=== PATIENT | male | born 1950 | race Caucasian/White ===

== ENCOUNTER → 2016-04-08 | Outpatient (CLI) | payer BC, OTHER ==
[~2016-04-08] MED LIST: ACET-1256 PO; ALLO100T PO; ASPI81TA28 PO; ATOR-24 PO; CRS20 PO; IBUP-1050 PO; NRN400 PO; OXYC-57 PO; ramipril PO
== END | disposition home or self-care (01) ==
LOC: C.RDSM 12:44
PROVIDERS: ATTEND Physical Medicine & Rehabilitation Sports Medicine
DX: M25.511 Pain in right shoulder (principal)

== ENCOUNTER → 2016-04-15 | Outpatient (CLI) | payer BC ==
--- NOTE | 2016-04-15 12:33 | DIAGNOSTIC IMAGING REPORT ---
MRI right shoulder RIGHT UPPER EXT JOINT WITHOUT CLINICAL HISTORY: RT SHOULDER PAIN Right pain TECHNIQUE: Multiaxial MRI acquisition COMPARISON STUDY: None FINDINGS: Signal characteristics the osseous structures are unremarkable. There is no evidence for bone marrow replacing process. Small focal osteophyte projecting in the inferior fashion from the lateral margin of the acromion. This measures 4 x 5 mm. It creates moderate focal impact upon the supraspinatus musculotendinous juncture. The may be a small superficial tear at the superior margin supraspinatus. No evidence for full-thickness rotator cuff tear. Infraspinatus and subscapularis tendons are unremarkable. Biceps tendon is intact within the bicipital groove. Glenoid labrum is unremarkable. IMPRESSION: 1. Focal osteophyte projecting from the inferior aspect of the acromion measuring 5 x 4 mm. 2. This creates focal impingement upon the musculotendinous junction of the supraspinatus, with evidence for a superficial partial thickness tear at its superior margin. 3. Remainder the study is negative with no evidence for full-thickness rotator cuff tear. Electronically signed by: Dick Nava M.D. 04/15/2016 12:31 PM Dictated Date/Time: 04/15/2016 12:24 PM
== END | disposition home or self-care (01) ==
LOC: C.MRI 11:24
PROVIDERS: ATTEND Physical Medicine & Rehabilitation Sports Medicine
DX: M25.711 Osteophyte, right shoulder (principal); M75.101 Unspecified rotator cuff tear or rupture of right shoulder, not specified as traumatic

== ENCOUNTER → 2016-06-17 | Outpatient (CLI) | payer BC | END | disposition home or self-care (01) | LOC: C.RDSM 14:01 | PROVIDERS: ATTEND Physical Medicine & Rehabilitation Sports Medicine | DX: M25.552 Pain in left hip (principal) ==

== ENCOUNTER → 2016-07-09 | Outpatient (CLI) | payer BC | END | disposition home or self-care (01) | LOC: C.RDSM 08:00 | PROVIDERS: ATTEND Physical Medicine & Rehabilitation Sports Medicine | DX: M79.651 Pain in right thigh (principal) ==

== ENCOUNTER → 2016-07-16 | Outpatient (CLI) | payer BC ==
--- NOTE | 2016-07-16 07:45 | DIAGNOSTIC IMAGING REPORT ---
LUMBAR SPINE MRI HISTORY: Back pain. Right neuropathy. M79.651. TECHNIQUE: Multiplanar multisequence MRI of the lumbar spine was performed without the use of contrast. COMPARISON: None. FINDINGS: For the purpose of the report the L5-S1 disc space will be located on axial image 23 of 25. Moderate degenerative disc changes throughout. Multilevel narrowing of the spinal canal. L1-L2: Mild multifactorial narrowing of the spinal canal. Minimal narrowing of the right neural foramina L2-L3: Mild multifactorial narrowing of the spinal canal. Neuroforamina are patent bilaterally. L3-L4: Rather significant multifactorial narrowing of the spinal canal. Mild broad-based disc herniation. Moderate narrowing of the right and to lesser extent left neural foramina. L4-L5: Mild/moderate multifactorial narrowing of spinal canal. Significant narrowing of the right and to lesser extent left neuroforamina. L5-S1: Mild broad-based bulging disc. Minimal impact upon the anterior thecal sac. IMPRESSION: 1. Moderate to significant multilevel narrowing of spinal canal. 2. This is most significant at L3-L4 and L4-L5 3. Significant narrowing of the right and to lesser extent left neural foramina at L4-L5. 4. Moderate narrowing of the right and to lesser extent left neural foramina L3-L4. Electronically signed by: Dick Nava M.D. 07/16/2016 7:43 AM Dictated Date/Time: 07/16/2016 7:36 AM
== END | disposition home or self-care (01) ==
LOC: C.MRI 06:42
PROVIDERS: ATTEND Physical Medicine & Rehabilitation Sports Medicine
DX: M79.661 Pain in right lower leg (principal); M48.06 Spinal stenosis, lumbar region

== ENCOUNTER → 2016-08-23 | Outpatient (CLI) | payer BC, OTHER | END | disposition home or self-care (01) | LOC: C.RDSM 08:57 | PROVIDERS: ATTEND Physical Medicine & Rehabilitation Sports Medicine | DX: M79.652 Pain in left thigh (principal); M25.562 Pain in left knee ==

== ENCOUNTER → 2016-10-03 | Outpatient (CLI) | payer BC, OTHER ==
[~2016-10-03] MED LIST changes: -CRS20 PO; -ramipril PO
--- NOTE | 2016-10-03 15:15 | DIAGNOSTIC IMAGING REPORT ---
LEFT LOWER EXT JOINT WITHOUT CLINICAL HISTORY: 66 years-old Male with acute left knee pain without reported trauma. COMPARISON: Left knee radiographs 08/23/2016 TECHNIQUE: Multiplanar, multisequence MRI of the left knee was performed without intravenous contrast. FINDINGS: MENISCI: There is a complex tear of the posterior horn medial meniscus extending into the posterior junction. The majority of this tear is horizontal undersurface component nicely seen on sagittal images 4 through 7. The tear also extends into the pre--- is mildly blunted. There is no associated large displaced fragment or para meniscal cysts identified. The anterior horn of the medial meniscus appears intact. There is minimal intrameniscal degeneration of the lateral meniscus without discrete tear. CRUCIATE LIGAMENTS: The anterior and posterior cruciate ligaments are normal in signal, morphology and course. COLLATERAL LIGAMENTS: The popliteus tendon, biceps femoris tendon, fibular collateral ligament and iliotibial band are intact. There is mild thickening with intermediate signal of the proximal fibers of the MCL suggesting grade 2 injury. EXTENSOR MECHANISM: The quadriceps and patellar tendons are intact. The medial and lateral patellar retinacula are intact. KNEE JOINT: There is a physiologic amount of fluid within the joint space. There is mild medial compartment joint space narrowing with areas of low-density in immediate grade chondromalacia. No large osteochondral defect. No significant degenerative changes are seen within the lateral compartment. Low-grade chondral fissuring present within the medial patellar facet. No intra-articular loose body is seen. BONE MARROW: The bone marrow signal is age appropriate. No fracture, marrow edema, or marrow replacing process. SOFT TISSUES: There is a mild amount of edema within the suprapatellar quadriceps fat suggesting possible impingement. There is an ossified body adjacent to the lateral aspect of the lateral tibial plateau just superior to the fibular head, 1.5 x 0.3 x 0.6 cm in AP, transverse and craniocaudal dimensions. Accessory ossicle or fragment osteophyte are differential considerations. Mild nonspecific edema seen within the posterior intercondylar notch. There is a trace Underwood's cyst. IMPRESSION: 1. 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 2. Complex tear of the posterior horn and posterior junction medial meniscus with dominant horizontal undersurface component extending into the free edge. 3. Mild amount of edema within the quadriceps fat pad suggests impingement. 4. Grade 2 injury of the MCL. 5. Trace Underwood's cyst. The above report was generated using voice recognition software. It may contain grammatical, syntax or spelling errors. Electronically signed by: Florencio Castañeda M.D. 10/03/2016 3:13 PM Dictated Date/Time: 10/03/2016 3:01 PM
== END | disposition home or self-care (01) ==
LOC: C.MRI 13:55
PROVIDERS: ATTEND Physical Medicine & Rehabilitation Sports Medicine
DX: M25.562 Pain in left knee (principal); S83.232A Complex tear of medial meniscus, current injury, left knee, initial encounter; S83.412A Sprain of medial collateral ligament of left knee, initial encounter; X58.XXXA Exposure to other specified factors, initial encounter

== ENCOUNTER → 2016-10-16 | Day surgery (SDC) | payer BC, OTHER ==
[2016-09-23 15:17] VITALS: Ht 198.1 cm; Wt 97.7 kg
[~2016-10-16] VITALS: Ht 198.1 cm; Wt 97.7 kg
[~2016-10-16] MED LIST changes: +IOPAMIDOL INJ 61% 15 ML VIAL ONE; +LIDOCAINE HCL 1% MPF 5 ML VIAL ONE; +SODIUM CHLORIDE 0.9% INJ 10 ML VIAL ONE
--- NOTE | 2016-10-16 13:01 | History & Physical Bridge - SC ---
H&P Re-Evaluation Bridge Note: I have examined the patient, reviewed the History & Physical and in the interval since the performance of the History & Physical I have noted the following changes of clinical significance: No changes noted
[2016-10-16 13:28] VITALS: TEMP 36.7
--- NOTE | 2016-10-16 13:34 | Discharge Instructions ---
Discharge Instructions Date of Service Oct 16, 2016. Visit Reason for Visit: Lumbar Spinal Stenosis Discharge Discharge Diagnosis / Problem: left leg pain Discharge Goals Goal(s): Decrease discomfort, Improve function Medications Stopped Medications Name(s): ASAANJU Activity Recommendations Activity Limitations: resume your previous activity Anesthesia . Post Anesthesia Instructions: If you have had General Anesthesia or IV Sedation: * Do not drive today. * Resume driving when surgeon permits. * Do not make important decisions or sign legal documents today. * Call surgeon for: 1. Temperature elevations greater than 101 degrees F. 2. Uncontrollable pain. 3. Excessive bleeding. 4. Persistent nausea and vomiting. 5. Medication intolerance (nausea, vomiting or rash). * For nausea and vomiting use only clear liquids such as: tea, soda, bouillon until nausea subsides, then gradually increase diet as tolerated. * If you have any concerns or questions, call your surgeon's office. If physician is unavailable and it is an emergency, call 911 or go to the nearest emergency room. . Diet Recommendations Recommended Home Diet: resume previous diet Procedures Procedures Performed: Lumbar Epidural Steroid Injection Pending Studies Studies pending at discharge: no Medical Emergencies . Who to Call and When: Medical Emergencies: If at any time you feel your situation is an emergency, please call 911 immediately. . Non-Emergent Contact Non-Emergency issues call your: Specialist . . "Provider Documentation" section prepared by Everardo Barnes. .
[2016-10-16 13:40] VITALS: BP 151/80; PULSE 51; O2SAT 100
--- NOTE | 2016-10-16 13:44 | OPERATIVE REPORT ---
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 POSTOPERATIVE DIAGNOSIS: Same. PROCEDURE: Left paramedian L4-L5 intralaminar epidural steroid injection under fluoroscopic guidance. SURGEON: Dr. Everardo Barnes. INDICATIONS: The patient is a 66-year-old white male who has not responded to conservative treatment for his radicular pain, has been going on now approaching more than 7 months. He presents today for an epidural injection to provide him with relief of his left L4 radiculopathy that radiates down into the thigh on the medial aspect of his knee. PHYSICAL EXAMINATION: GENERAL: Pleasant male seated comfortably in no apparent distress. MUSCULOSKELETAL: Lumbar paraspinal muscles were palpated and noted be nontender. He had normal motor and sensory examination of his lower extremities. Negative seated straight leg raises. CONSENT: Verbal and written consent was obtained from the patient. Risks and benefits were reviewed. Risks include but are not limited to epidural abscess, epidural hematoma, allergic reaction, dural puncture. The patient wishes to proceed. PROCEDURE: The patient was taken back to the special procedures room of the [facility] where he was maintained in a prone position. Backside was cleansed with Betadine x3 and a dry sterile dressing was applied. Fluoroscope was used to identify the L4-L5 interlaminar space and overlying skin was anesthetized with 4 mL of lidocaine 1% with a 25 gauge 1.5-inch needle. A 22-gauge 3-1/2 inch Tuohy needle was then placed under fluoroscopic guidance and advanced to a depth of 7 cm. Loss of resistance was noted at this depth. He then underwent injection after negative aspiration of 1 mL of Isovue 300 contrast which demonstrated epidural uptake pattern. He then underwent injection after negative aspiration of 40 mg of Depo-Medrol and 4 mL of preservative free sodium chloride. Injection was well tolerated. DISPOSITION: 1. The patient is taken out into the discharge recovery area where he will be discharged home once discharge criteria have been met. 2. Follow up in the [facility] office in 2-4 weeks. I attest to the content of the Intraoperative Record and any orders documented therein. Any exception s are noted below.
== END | disposition home or self-care (01) ==
LOC: X.SURG 12:08
PROVIDERS: ATTEND Physical Medicine & Rehabilitation
DX: M51.16 Intervertebral disc disorders with radiculopathy, lumbar region (principal); M48.06 Spinal stenosis, lumbar region; Z79.82 Long term (current) use of aspirin

== ENCOUNTER → 2017-02-27 | Outpatient (CLI) | payer BC ==
[~2017-02-27] VITALS: Ht 198.1 cm; Wt 102.4 kg
[~2017-02-27] MED LIST changes: -IOPAMIDOL INJ 61% 15 ML VIAL ONE; -LIDOCAINE HCL 1% MPF 5 ML VIAL ONE; -SODIUM CHLORIDE 0.9% INJ 10 ML VIAL ONE
[2017-02-27 11:55] VITALS: BP 138/74; PULSE 56; Ht 198.1 cm; Wt 102.4 kg
== END | disposition home or self-care (01) ==
LOC: C.NEUR 11:15
PROVIDERS: ATTEND Internal Medicine Pulmonary Disease
DX: G47.33 Obstructive sleep apnea (adult) (pediatric) (principal)

== ENCOUNTER → 2017-04-24 | Day surgery (SDC) | payer BC, OTHER ==
[2017-04-01 11:48] VITALS: Ht 198.1 cm; Wt 96.4 kg
[~2017-04-24] VITALS: Ht 198.1 cm; Wt 96.4 kg
== END | disposition home or self-care (01) ==
LOC: EDSTATUS 13:00 → C.PAT 15:18
PROVIDERS: ATTEND Physical Medicine & Rehabilitation
DX: M54.16 Radiculopathy, lumbar region (principal); Z53.9 Procedure and treatment not carried out, unspecified reason

== ENCOUNTER 2024-02-12 02:15 | Observation (INO) ==
[2024-02-12] MEDS: ONDANSETRON INJ 2 MG/ML 2 ML VIAL IV STA (02:36)
[2024-02-12] MEDS: SODIUM CHLORIDE 0.9% 500 ML IV ONE (02:36)
[2024-02-12] MEDS: fentaNYL citrate PF 100 MCG/2 ML VIAL IV STA (02:37)
--- NOTE | 2024-02-12 02:55 | Emergency Department Note ---
Impression & Plan Calculus of left ureter, Hydronephrosis of left kidney, Acute left flank pain, Intractable pain ED Provider Note HISTORY OF PRESENT ILLNESS: Patient is a 73-year-old male presenting with left flank pain. Patient reports that he was recently seen in the emergency department 7 days ago and diagnosed with a kidney stone. He states that he was having pain throughout the last week and has had intermittent episodes of blood in his urine. He states that he has been straining his urine and has not passed the stone yet. He states that he was sleeping when he awoke acutely at 1:30 AM with pain in his left flank. He took 600 mg of ibuprofen and 5 mg of the prescribed oxycodone with little relief in his symptoms. He describes the pain as sharp and constant. He denies any fevers. He denies any chest pain or shortness of breath. Denies any anterior abdominal pain. Locates the pain to the left CVA region with radiation into his left lateral flank. Denies any pain into his testicles. Abdominal surgical history significant for a right sided hernia repair and an appendectomy. ROS: as above PHYSICAL EXAM: Constitutional: Patient appears in no acute distress. HENT: Head: Normocephalic and atraumatic. Eyes: EOMI, PERRL Mouth/Throat: Mucous membranes moist. Neck: Trachea midline. Neck supple. Cardiovascular: RRR, No murmurs, rubs or gallops. Intact distal pulses. Pulmonary/Chest: No respiratory distress. Breath sounds clear and equal bilaterally. No wheezes or rales. Abdominal: Abdomen soft, no tenderness, rebound or guarding. Back: No midline spinal tenderness, no paraspinal tenderness. Left CVA tenderness to palpation. No rashes noted. Musculoskeletal: No edema, tenderness or deformity noted. Skin: Warm and dry. No rash, erythema, pallor or cyanosis Psychiatric: Appropriate mood and affect for situation. Neurological: Alert and keenly responsive. CN II-XII grossly intact, moving all extremities equally and fully. MDM: - Vitals signs showed hypertension and bradycardia. - History obtained via patient. History as above. - Chronic conditions affecting care: anxiety; BPH; HLD - Differential diagnoses include, but are not limited to: ureteral stone; hydronephrosis; UTI; pyelonephritis; diverticulitis; colitis - Order placed for continuous cardiac monitoring. At this time, monitor showed rate of 57 bpm with normal sinus rhythm, per my interpretation. - External medical records reviewed. CT imaging obtained on 02/05/2024 was reviewed. Patient had a 4 mm ureteral stone that was located in the proximal ureter at the time. - IV access obtained. Patient was given 500 cc normal saline, 4 mg IV Zofran and 50 mcg IV fentanyl for symptomatic management. He did desaturate to 88% on room air and was placed on 2 L of supplemental oxygen. - Laboratory workup interpreted by myself showed normal WBC; stable electrolytes; normal creatinine; normal lipase - On reassessment, patient reports the pain is coming back and he rates it an 8 out of 10. He was given a gram of IV Tylenol with little relief in his symptoms and then given 15 mg of IV Toradol. However, on reassessment he is stating that his pain is a 10 out of 10. He was given 2 mg of IV morphine. - CT abdomen/pelvis with IV contrast persistent left 4 mm mid-ureteral stone with left-sided hydronephrosis - On reassessment, patient's pain only minimally improved. Discussed results with the patient. He was agreeable to admission, given his persistent symptoms and failed outpatient management. - Discussion was had with binder caser about patient's case and need for admission - Hospitalist consulted for admission - Patient admitted to [facility] for further evaluation and management. ASSESSMENT AND PLAN: Diagnosis: left ureteral stone; left hydronephrosis; acute left flank pain; intractable pain Plan: admit Past Med/Surg History Problem List (Updated 02/12/24 @ 04:48 by Fide Braden MD) Intractable pain (Acute) Acute left flank pain (Acute) Hydronephrosis of left kidney (Acute) Calculus of left ureter (Acute) Abdominal fluid collection (Acute) Kidney stones (Acute) Kidney stone on left side Colon cancer screening Biceps tendon rupture, proximal Encounter for pre-operative examination History of surgery RT BICEPS REPAIR/PT DENIES SURGERY FOR Tremor Neuropathy Radicular pain in right arm Gait abnormality Ulnar neuropathy at elbow of right upper extremity Glucose intolerance Sleep apnea Medical History Anxiety BPH (benign prostatic hyperplasia) Cardiac murmur History of colon polyps History of gout Hyperlipidemia Kidney stone on left side Myocardial Infarction Nasal congestion Neuropathy Osteoarthritis Sleep apnea Tremor Surgical History Fusion of toes of right foot History of appendectomy History of colonoscopy History of esophagogastroduodenoscopy (EGD) History of hammertoe correction History of herniorrhaphy History of surgery on upper extremity History of tooth extraction S/P epidural steroid injection Family History Sister Family history of diabetes mellitus Other Family history of prostate cancer No family history of adverse response to anesthesia Social History Smoking Status: Never smoker Second Hand Exposure: No; Do You Dip or Chew Tobacco: No; Hx Alcohol Use: No Hx Substance Use: No Preferred Language: Citizen Of [place] Communication Ability: Effective Post Doctoral Researcher Required: No Beliefs That Will Affect Care: None Current Living Situation: Spouse Feels Safe at Home: Yes Assistive Devices: Glasses Allergies Allergies Allergy/AdvReac Type Severity Reaction Status Date / Time chlorhexidine Allergy Severe RASH Verified 02/10/24 09:57 pregabalin [From Lyrica] Allergy Unknown Hives Verified 02/10/24 09:57 Home Meds Home Medications Medication Instructions Recorded Confirmed acetaminophen 500 mg tablet 1,000 mg PO Q6H PRN Pain ##0 09/23/16 02/10/24 (Tylenol Extra Strength) sertraline 100 mg tablet (Zoloft) 100 mg PO PM 09/01/20 02/10/24 multivitamin with minerals-folic 1 tab PO QPM 03/21/22 02/10/24 acid 0.4 mg tablet (Adult One Daily Multivitamin) allopurinol 300 mg tablet 300 mg PO DAILY 09/26/22 02/10/24 aspirin 81 mg tablet,delayed 81 mg PO DAILY 09/26/22 02/10/24 release rosuvastatin 40 mg tablet 40 mg PO DAILY 09/26/22 02/10/24 Previous Rx's Medication Instructions Recorded oxycodone-acetaminophen 5 mg-325 1 tab PO Q6H PRN pain #14 tabs 02/05/24 mg tablet (Percocet) Results & Data (ED) Vital Signs Vital Signs - 24 hr 02/12/24 02:16 02/12/24 02:19 02/12/24 02:42 Temperature 36.6 C 36.9 C Temperature Source Oral Temporal Artery Scan Pulse Rate 55 L 54 L Pulse Rate [Right Finger] 59 L Pulse Rhythm Regular Pulse Strength Normal Respiratory Rate 17 18 Respiratory Effort / Characteristics Non-Labored Spontaneous Respiratory Depth Normal Respiratory Pattern Regular Blood Pressure 162/81 H Blood Pressure [Left Arm] 145/67 H Blood Pressure Mean 108 Blood Pressure Mean [Left Arm] 93 Blood Pressure Position Sitting Blood Pressure Position [Left Arm] Pulse Oximetry 98 100 Oxygen Delivery Method Nasal Cannula Room Air Oxygen Flow Rate 2 Sepsis Recent Fever Within 48 Hours No Sepsis New/Unexplained Change in Mental Status N/A Sepsis Action Taken by Nursing No Action Required 02/12/24 02:49 02/12/24 02:50 02/12/24 03:42 Temperature Temperature Source Pulse Rate Pulse Rate [Right Finger] 64 Pulse Rhythm Pulse Strength Respiratory Rate 18 Respiratory Effort / Characteristics Non-Labored Respiratory Depth Normal Respiratory Pattern Blood Pressure Blood Pressure [Left Arm] 166/69 H Blood Pressure Mean Blood Pressure Mean [Left Arm] 101 Blood Pressure Position Blood Pressure Position [Left Arm] Sitting Pulse Oximetry 88 L 99 98 Oxygen Delivery Method Room Air Nasal Cannula Room Air Oxygen Flow Rate 2 Sepsis Recent Fever Within 48 Hours Sepsis New/Unexplained Change in Mental Status Sepsis Action Taken by Nursing 02/12/24 04:02 Temperature Temperature Source Pulse Rate Pulse Rate [Right Finger] 55 L Pulse Rhythm Pulse Strength Respiratory Rate 24 Respiratory Effort / Characteristics Respiratory Depth Respiratory Pattern Blood Pressure Blood Pressure [Left Arm] 164/79 H Blood Pressure Mean Blood Pressure Mean [Left Arm] 107 Blood Pressure Position Blood Pressure Position [Left Arm] Pulse Oximetry 100 Oxygen Delivery Method Room Air Oxygen Flow Rate Sepsis Recent Fever Within 48 Hours Sepsis New/Unexplained Change in Mental Status Sepsis Action Taken by Nursing Laboratory Data 02/12/24 02:36 02/12/24 02:36 Lab Results 02/12/24 02/12/24 Range/Units 02:36 02:52 WBC 7.50 (4.8-10.8) K/ul RBC 4.69 L (4.70-6.10) M/uL Hgb 14.9 (14.0-18.0) g/dl Hct 43.4 (42.0-52.0) % MCV 92.5 (80.0-100.0) fL MCH 31.8 (25.0-34.0) pg MCHC 34.3 (32.0-36.0) g/dL RDW Std Deviation 41.5 (36.4-46.3) fL RDW Coeff of Jennifer 12.2 (11.5-14.5) % Plt Count 234 (130-400) K/uL MPV 9.9 (9.4-12.4) fL Immature Gran % (Auto) 0.3 % Neut % (Auto) 64.5 % Lymph % (Auto) 21.2 % Keith % (Auto) 10.9 % Eos % (Auto) 2.7 % Baso % (Auto) 0.4 % Neut # (Auto) 4.84 (1.40-6.50) K/uL Lymph # (Auto) 1.59 (1.20-3.40) K/uL Keith # (Auto) 0.82 H (0.11-0.59) K/uL Eos # (Auto) 0.20 (0.00-0.50) K/uL Baso # (Auto) 0.03 (0.00-0.20) K/uL Immature Gran # (Auto) 0.02 (0.01-0.20) K/uL PT 10.2 (9.0-12.0) Seconds INR 0.9 (0.9-1.1) Sodium 144 (136-145) mmol/L Potassium 4.2 (3.5-5.1) mmol/L Chloride 108 H (98-107) mmol/L Carbon Dioxide 28 (21-32) mmol/L Anion Gap 8 (3-11) BUN 22 (6-23) mg/dl Creatinine 0.97 (0.6-1.4) mg/dl Est Cr Clr Drug Dosing 96.4 ml/min eGFR 82.94 BUN/Creatinine Ratio 22.7 H (10-20) Glucose 124 H (70-99(Fasting)) mg/dl Lactate 1.5 (0.4-2.0) mmol/L Calcium 9.6 (8.6-10.3) mg/dl Total Bilirubin 1.0 (0.2-1.0) mg/dl AST 20 (13-39) U/L ALT 18 (7-52) U/L Alkaline Phosphatase 54 (34-104) U/L Total Protein 7.1 (6.0-8.3) gm/dl Albumin 3.9 (3.4-5.0) gm/dl Globulin 3.2 (2.5-4.0) gm/dl Albumin/Globulin Ratio 1.2 (0.9-2) Lipase 26 (11-82) U/L Urine Color Dark Yellow Urine Appearance Clear (Clear) Urine pH 6.0 (4.5-7.5) Ur Specific [place] 1.027 (1.000-1.030) Urine Protein Trace H (Negative) Urine Glucose (UA) Negative (Negative) Urine Ketones Trace H (Negative) Urine Blood 2+ H (Negative) Urine Nitrite Negative (Negative) Urine Bilirubin Negative (Negative) Urine Urobilinogen Negative (Negative) Ur Leukocyte Esterase Trace H (Negative) Urine WBC (Auto) 0-5 (0-5) /hpf Urine RBC (Auto) >20 H (0-2) /hpf U Hyaline Cast (Auto) 3-5 H (0-2) /lpf U Epithel Cells (Auto) 0-2 (0-2) /hpf Urine Bacteria (Auto) None Seen (None Seen) Administered Medications Discontinued Medications Fentanyl Citrate (Fentanyl Citrate Pf 100 Mcg/2 Ml Vial) 50 mcg IV NOW STA Stop: 02/12/24 02:29 Last Admin: 02/12/24 02:37 Dose: 50 mcg Documented By: PERLITA Sodium Chloride (Nss) 500 mls @ 999 mls/hr IV .Q31M ONE Stop: 02/12/24 02:58 Last Infusion: 02/12/24 03:28 Dose: Infused Documented By: Admin: 02/12/24 02:36 Dose: 999 mls/hr Documented By: PERLITA Acetaminophen (Ofirmev) 1,000 mg in 100 mls @ 400 mls/hr IV NOW STA Stop: 02/12/24 04:01 Last Infusion: 02/12/24 04:08 Dose: Infused Documented By: Admin: 02/12/24 03:52 Dose: 400 mls/hr Documented By: PERLITA Ioversol (Optiray 320 100ml) 94 ml IV ONCE ONE Stop: 02/12/24 03:34 Last Admin: 02/12/24 03:33 Dose: 94 ml Documented By: VERÓNICA Ketorolac Tromethamine (Ketorolac Tromethamine 15 Mg/Ml Vial) 15 mg IV NOW STA Stop: 02/12/24 04:02 Last Admin: 02/12/24 04:03 Dose: 15 mg Documented By: AN Morphine Sulfate (Morphine Sulfate 2 Mg/Ml Carp) 2 mg IV NOW STA Stop: 02/12/24 04:22 Last Admin: 02/12/24 04:24 Dose: 2 mg Documented By: AN Ondansetron HCl (Ondansetron Inj 2 Mg/Ml 2 Ml Vial) 4 mg IV NOW STA Stop: 02/12/24 02:29 Last Admin: 02/12/24 02:36 Dose: 4 mg Documented By: RAJIVS Imaging Data Radiologist's Impression: Abdomen/Pelvis CT 02/12/24 02:27 EXAM: CT abd pelvis IV con only CLINICAL HISTORY: L-sided abd pain 94ml of 320 TECHNIQUE: A CT scan of the abdomen and pelvis was performed with the administration of IV contrast. Coronal and sagittal reconstructive images were also obtained. One of the following dose-reduction techniques was utilized for this exam. Automated exposure control, adjustment of the mA and/or kV according to patient size, and use of iterative reconstruction. COMPARISON: prior 02/05/2024 FINDINGS: Abdomen: The liver is mildly enlarged measuring 16.6 cm MCL. No focal or diffuse parenchymal abnormality. The portal vein, intrahepatic biliary radicals, and the bile ducts are normal. The spleen, pancreas(apart from a few calcific foci), and adrenal glands are unremarkable. The kidneys are unremarkable. They are normal in size and shape. They were still noted left mid-ureteric dense stone opposite L3-L4 vertebral level, measuring 4 mm, with upstream mild hydronephrosis. Bilateral multiple parapelvic cysts (BOSNAIK I). Bilateral mild perirenal fat stranding. The gallbladder is normal. No pericholecystic collection or radio-dense calculi in the gall bladder. The ascending colon, the transverse colon, the descending colon, visualized small bowel loops are unremarkable. The appendix is normal in size without mark appendiceal fat stranding and without an appendicolith. There is no evidence of significant enlargement of the mesenteric or retroperitoneal lymph nodes. Mild atherosclerotic plaques of the abdominal aorta. Pelvis: The urinary bladder is unremarkable. The rectosigmoid colon is unremarkable. Moderately enlarged prostate showing fine calcifications. No evidence of pelvic lymphadenopathy. Small left inguinal fat containing hernia. Spondylotic changes of the lumbar spine with dextro-scoliosis. No lytic or sclerotic bone lesions. A small left iliopsoas bursa was noted. Lower chest cuts revealed minimal bilateral pleural reactions, bibasal atelectatic bands with subpleural ground-glass attenuation and fine reticulations, likely retained secretions. IMPRESSION: 1. Still, noted left mid-ureteric dense stone opposite L3-L4 vertebral level, measuring 4 mm, with upstream mild hydronephrosis. 2. Bilateral multiple parapelvic cysts (BOSNAIK I). 3. Bilateral mild perirenal fat stranding. 4. Mild hepatomegaly. 5. Moderately enlarged prostate. 6. Small left inguinal fat containing hernia. 7. Minimal bilateral pleural reactions. 8. Interval new bilateral pleural reactions, with a stable course of the rest of the findings. Electronically signed by Polo Galvez 02-12-2024 04:41 AM Discharge Plan Visit Data Chief Complaint: Back Injury/Pain Stated Complaint: LOW BACK PAIN INTO ABD AREA ED Provider: Fide Braden Discharge Problem: Calculus of left ureter, Hydronephrosis of left kidney, Acute left flank pain, Intractable pain Forms Stand Alone Forms: [facility] Prescriptions Prescriptions: No Action acetaminophen [Tylenol Extra Strength] 500 mg Tablet 1,000 mg PO Q6H PRN (Reason: Pain) Qty: 0 sertraline [Zoloft] 100 mg Tablet 100 mg PO PM multivit with min-folic acid [Adult One Daily Multivitamin] 0.4 mg Tablet 1 tab PO QPM allopurinol 300 mg tablet 300 mg PO DAILY aspirin [Aspirin Low-Strength] 81 mg Tablet,Delayed Release (Dr/Ec) 81 mg PO DAILY rosuvastatin 40 mg tablet 40 mg PO DAILY oxycodone-acetaminophen [Percocet] 5-325 mg tablet 1 tab PO Q6H PRN (Reason: pain) Qty: 14 0RF Referrals Referrals: Alisha Sotelo MD [Primary Care Provider] -
[2024-02-12 03:01] LABS: Basophils # (auto) 0.03 K/uL (0.00-0.20); Basophils % (auto) 0.4 %; Eosinophils % (auto) 2.7 %; Hematocrit (blood only) 43.4 % (42.0-52.0); Hemoglobin 14.9 g/dl (14.0-18.0); Immature Granulocytes # (auto) 0.02 K/uL (0.01-0.20); Immature Granulocytes % (auto) 0.3 %; Lymphocytes # (auto) 1.59 K/uL (1.20-3.40); Lymphocytes % (auto) 21.2 %; Mean Corpuscular Hemoglobin 31.8 pg (25.0-34.0); Mean Corpuscular Hgb Conc 34.3 g/dL (32.0-36.0); Mean Corpuscular Volume 92.5 fL (80.0-100.0); Mean Platelet Volume 9.9 fL (9.4-12.4); Monocytes # (auto) 0.82 K/uL (0.11-0.59); Monocytes % (auto) 10.9 %; Neutrophils # (auto) 4.84 K/uL (1.40-6.50); Neutrophils % (auto) 64.5 %; Platelet Count 234 K/uL (130-400); RDW Coefficient of Variation 12.2 % (11.5-14.5); RDW Standard Deviation 41.5 fL (36.4-46.3); Red Blood Count 4.69 M/uL (4.70-6.10)
[2024-02-12 03:16] LABS: Albumin Globulin Ratio 1.2 (0.9-2); Albumin Level 3.9 gm/dl (3.4-5.0); BUN Creatinine Ratio 22.7 (10-20); Calcium 9.6 mg/dl (8.6-10.3); Creatinine Clr Calc Pharmacy 96.4 ml/min; Globulin 3.2 gm/dl (2.5-4.0); Potassium 4.2 mmol/L (3.5-5.1); Total Protein 7.1 gm/dl (6.0-8.3)
[2024-02-12 03:28] LABS: INR 0.9 (0.9-1.1); Prothrombin Time 10.2 Seconds (9.0-12.0)
[2024-02-12 03:30] LABS: Appearance Urine Clear (Clear); Bacteria Urine Automated None Seen (None Seen); Bilirubin Urine Negative (Negative); Blood Urine 2+ (Negative); Color Urine Dark Yellow; Epithelial Cell Urine Auto 0-2 /hpf (0-2); Glucose Urine UA Negative (Negative); Ketones Urine Trace (Negative); Leukocyte Esterase Urine Trace (Negative); Nitrite Urine Negative (Negative); Protein Urine Trace (Negative); RBC Urine Automated >20 /hpf (0-2); Specific Gravity Urine 1.027 (1.000-1.030); Urobilinogen Urine Negative (Negative); WBC Urine Automated 0-5 /hpf (0-5)
[2024-02-12] MEDS: OPTIRAY 320 100ml IV ONE (03:33)
[2024-02-12] MEDS: ACETAMINOPHEN 1,000 MG/100 ML VIAL IV STA (03:52)
[2024-02-12] MEDS: KETOROLAC TROMETHAMINE 15 MG/ML VIAL IV STA (04:03)
[2024-02-12] MEDS: MoRPHine SULFATE 2 MG/ML CARP IV STA (04:24)
--- NOTE | 2024-02-12 04:42 | CT Scan Report ---
EXAM: CT abd pelvis IV con only CLINICAL HISTORY: L-sided abd pain 94ml of 320 TECHNIQUE: A CT scan of the abdomen and pelvis was performed with the administration of IV contrast. Coronal and sagittal reconstructive images were also obtained. One of the following dose-reduction techniques was utilized for this exam. Automated exposure control, adjustment of the mA and/or kV according to patient size, and use of iterative reconstruction. COMPARISON: prior 02/05/2024 FINDINGS: Abdomen: The liver is mildly enlarged measuring 16.6 cm MCL. No focal or diffuse parenchymal abnormality. The portal vein, intrahepatic biliary radicals, and the bile ducts are normal. The spleen, pancreas(apart from a few calcific foci), and adrenal glands are unremarkable. The kidneys are unremarkable. They are normal in size and shape. They were still noted left mid-ureteric dense stone opposite L3-L4 vertebral level, measuring 4 mm, with upstream mild hydronephrosis. Bilateral multiple parapelvic cysts (BOSNAIK I). Bilateral mild perirenal fat stranding. The gallbladder is normal. No pericholecystic collection or radio-dense calculi in the gall bladder. The ascending colon, the transverse colon, the descending colon, visualized small bowel loops are unremarkable. The appendix is normal in size without mark appendiceal fat stranding and without an appendicolith. There is no evidence of significant enlargement of the mesenteric or retroperitoneal lymph nodes. Mild atherosclerotic plaques of the abdominal aorta. Pelvis: The urinary bladder is unremarkable. The rectosigmoid colon is unremarkable. Moderately enlarged prostate showing fine calcifications. No evidence of pelvic lymphadenopathy. Small left inguinal fat containing hernia. Spondylotic changes of the lumbar spine with dextro-scoliosis. No lytic or sclerotic bone lesions. A small left iliopsoas bursa was noted. Lower chest cuts revealed minimal bilateral pleural reactions, bibasal atelectatic bands with subpleural ground-glass attenuation and fine reticulations, likely retained secretions. IMPRESSION: 1. Still, noted left mid-ureteric dense stone opposite L3-L4 vertebral level, measuring 4 mm, with upstream mild hydronephrosis. 2. Bilateral multiple parapelvic cysts (BOSNAIK I). 3. Bilateral mild perirenal fat stranding. 4. Mild hepatomegaly. 5. Moderately enlarged prostate. 6. Small left inguinal fat containing hernia. 7. Minimal bilateral pleural reactions. 8. Interval new bilateral pleural reactions, with a stable course of the rest of the findings. Electronically signed by Polo Galvez 02-12-2024 04:41 AM
--- NOTE | 2024-02-12 05:22 | History & Physical Report ---
Date of Service February 12, 2024 Assessment & Plan (1) Hydronephrosis of left kidney: (2) Calculus of left ureter: (3) Acute left flank pain: (4) Intractable pain: Plan 4 mm left mid ureter stone/mild left hydronephrosis- N.p.o. Follow urine culture and sensitivity Ceftriaxone 2 g IV every 24 hours Acetaminophen 1 g IV every 8 hours as needed for mild pain or fever Morphine sulfate 2 mg IV every 3 hours as needed for moderate pain Morphine sulfate 4 mg IV every 3 hours as needed for severe pain Zofran 4 mg IV every 6 hours as needed Status post NSS 500 mL bolus from the ED LR at 80 mL/h x 1 L Consult urology History of Present Illness Chief Complaint: The patient presents to the emergency department with a recurrence of left flank pain that began initially 7 days ago, that had improved after getting Toradol and morphine IV at that time. He had been doing well until earlier this evening around 1:30 AM, when he awoke with severe left flank pain again. He reports he took 600 mg of ibuprofen and 5 mg of oxycodone, without much relief in symptoms, and thus presents to the ED for assessment Primary Care Provider: Alisha Sotelo MD The patient is a 73-year-old male with a past medical history including history of 4 previous kidney stones, tremor, neuropathy, gait abnormality, glucose intolerance, sleep apnea, gout and hyperlipidemia. He presents to the emergency department with symptoms as noted above. CT scan of abdomen pelvis shows a mid left ureter stone not significantly changed in position, with mild left hydronephrosis. He did get improvement with Toradol and then morphine in the ED, and was then referred for evaluation for admission Allergies Allergy/AdvReac Type Severity Reaction Status Date / Time chlorhexidine Allergy Severe RASH Verified 02/10/24 09:57 pregabalin [From Lyrica] Allergy Unknown Hives Verified 02/10/24 09:57 Home Medications Medication Instructions Recorded Confirmed Type acetaminophen 500 mg tablet 1,000 mg PO Q6H PRN Pain ##0 09/23/16 02/10/24 History (Tylenol Extra Strength) sertraline 100 mg tablet (Zoloft) 100 mg PO PM 09/01/20 02/10/24 History multivitamin with minerals-folic 1 tab PO QPM 03/21/22 02/10/24 History acid 0.4 mg tablet (Adult One Daily Multivitamin) allopurinol 300 mg tablet 300 mg PO DAILY 09/26/22 02/10/24 History aspirin 81 mg tablet,delayed 81 mg PO DAILY 09/26/22 02/10/24 History release rosuvastatin 40 mg tablet 40 mg PO DAILY 09/26/22 02/10/24 History oxycodone-acetaminophen 5 mg-325 1 tab PO Q6H PRN pain #14 tabs 02/05/24 02/10/24 Rx mg tablet (Percocet) Past Med/Surg History Problem List (Updated 02/12/24 @ 04:48 by Fide Braden MD) Intractable pain (Acute) Acute left flank pain (Acute) Hydronephrosis of left kidney (Acute) Calculus of left ureter (Acute) Abdominal fluid collection (Acute) Kidney stones (Acute) Kidney stone on left side Colon cancer screening Biceps tendon rupture, proximal Encounter for pre-operative examination History of surgery RT BICEPS REPAIR/PT DENIES SURGERY FOR Tremor Neuropathy Radicular pain in right arm Gait abnormality Ulnar neuropathy at elbow of right upper extremity Glucose intolerance Sleep apnea Medical History Anxiety BPH (benign prostatic hyperplasia) Cardiac murmur History of colon polyps History of gout Hyperlipidemia Kidney stone on left side Myocardial Infarction Nasal congestion Neuropathy Osteoarthritis Sleep apnea Tremor Surgical History Fusion of toes of right foot History of appendectomy History of colonoscopy History of esophagogastroduodenoscopy (EGD) History of hammertoe correction History of herniorrhaphy History of surgery on upper extremity History of tooth extraction S/P epidural steroid injection Family History Sister Family history of diabetes mellitus Other Family history of prostate cancer No family history of adverse response to anesthesia Social History Smoking Status: Never smoker Second Hand Exposure: No; Do You Dip or Chew Tobacco: No; Hx Alcohol Use: No Hx Substance Use: No Preferred Language: Nepalese Communication Ability: Effective Account Support Manager Required: No Beliefs That Will Affect Care: None Current Living Situation: Spouse Feels Safe at Home: Yes Assistive Devices: Glasses Review of Systems Review of Systems: The patient denies chest pain, palpitations, shortness of breath, dyspnea on exertion, cough, lower extremity swelling, sore throat, fevers, chills, sweats, nausea, vomiting, diarrhea , constipation, blood in stool, lightheadedness, dizziness, headache, memory loss, loss of consciousness, rash, abnormal bruising or bleeding, imbalance, focal or generalized weakness, numbness or tingling in arms or legs, generalized arthralgias or myalgias, back or neck pain, or night sweats. The review of systems is otherwise negative other than for that already noted above, and at least 10 systems have been reviewed. Physical Exam Physical Exam: The patient is awake, alert and oriented 3, well developed and well nourished, normocephalic and atraumatic, lying in bed and in no acute distress. HEENT--PERRL, EOMI, mucous membranes and oropharynx normal Neck--supple. No JVD. No bruits. Thyroid normal, trachea midline, no adenopathy. Heart--normal S1 and S2. No murmurs, rubs or gallops. Lungs--clear bilaterally, no respiratory distress, no accessory muscle use. Abdomen--normal bowel sounds and soft. Nontender. Nondistended, no hernias or masses, no organomegaly. Extremities--no cyanosis or clubbing. No edema. There are good distal pulses b/l. Dermatologic--normal skin turgor, normal color, no abnormal lymph nodes, no rash. Neurologic--cranial nerves II through XII grossly intact. Rheumatologic--normal range of motion. Psychiatric--normal affect. Results & Data Results & Data Vital Signs (Past 12 Hours) Vital Signs Temp Pulse Pulse Resp BP BP Pulse Ox 02/12/24 04:02 55 L 24 164/79 H 100 02/12/24 03:42 64 18 166/69 H 98 02/12/24 02:50 99 02/12/24 02:49 88 L 02/12/24 02:42 54 L 02/12/24 02:19 36.9 C 55 L 18 162/81 H 100 02/12/24 02:16 36.6 C 59 L 17 145/67 H 98 O2 Del Method O2 Flow Rate 02/12/24 04:02 Room Air 02/12/24 03:42 Room Air 02/12/24 02:50 Nasal Cannula 2 02/12/24 02:49 Room Air 02/12/24 02:42 02/12/24 02:19 Room Air 02/12/24 02:16 Nasal Cannula 2 Laboratory Results Laboratory Results WBC 7.50 K/ul (4.8-10.8) 02/12/24 02:36 RBC 4.69 M/uL (4.70-6.10) L 02/12/24 02:36 Hgb 14.9 g/dl (14.0-18.0) 02/12/24 02:36 Hct 43.4 % (42.0-52.0) 02/12/24 02:36 MCV 92.5 fL (80.0-100.0) 02/12/24 02:36 MCH 31.8 pg (25.0-34.0) 02/12/24 02:36 MCHC 34.3 g/dL (32.0-36.0) 02/12/24 02:36 RDW Std Deviation 41.5 fL (36.4-46.3) 02/12/24 02:36 RDW Coeff of Jennifer 12.2 % (11.5-14.5) 02/12/24 02:36 Plt Count 234 K/uL (130-400) 02/12/24 02:36 MPV 9.9 fL (9.4-12.4) 02/12/24 02:36 Immature Gran % (Auto) 0.3 % 02/12/24 02:36 Neut % (Auto) 64.5 % 02/12/24 02:36 Lymph % (Auto) 21.2 % 02/12/24 02:36 [place] % (Auto) 10.9 % 02/12/24 02:36 Eos % (Auto) 2.7 % 02/12/24 02:36 Baso % (Auto) 0.4 % 02/12/24 02:36 Neut # (Auto) 4.84 K/uL (1.40-6.50) 02/12/24 02:36 Lymph # (Auto) 1.59 K/uL (1.20-3.40) 02/12/24 02:36 [place] # (Auto) 0.82 K/uL (0.11-0.59) H 02/12/24 02:36 Eos # (Auto) 0.20 K/uL (0.00-0.50) 02/12/24 02:36 Baso # (Auto) 0.03 K/uL (0.00-0.20) 02/12/24 02:36 Immature Gran # (Auto) 0.02 K/uL (0.01-0.20) 02/12/24 02:36 PT 10.2 Seconds (9.0-12.0) 02/12/24 02:36 INR 0.9 (0.9-1.1) 02/12/24 02:36 Sodium 144 mmol/L (136-145) 02/12/24 02:36 Potassium 4.2 mmol/L (3.5-5.1) 02/12/24 02:36 Chloride 108 mmol/L (98-107) H 02/12/24 02:36 Carbon Dioxide 28 mmol/L (21-32) 02/12/24 02:36 Anion Gap 8 (3-11) 02/12/24 02:36 BUN 22 mg/dl (6-23) 02/12/24 02:36 Creatinine 0.97 mg/dl (0.6-1.4) 02/12/24 02:36 Est Cr Clr Drug Dosing 96.4 ml/min 02/12/24 02:36 eGFR 82.94 02/12/24 02:36 BUN/Creatinine Ratio 22.7 (10-20) H 02/12/24 02:36 Glucose 124 mg/dl (70-99(Fasting)) H 02/12/24 02:36 Lactate 1.5 mmol/L (0.4-2.0) 02/12/24 02:36 Calcium 9.6 mg/dl (8.6-10.3) 02/12/24 02:36 Total Bilirubin 1.0 mg/dl (0.2-1.0) 02/12/24 02:36 AST 20 U/L (13-39) 02/12/24 02:36 ALT 18 U/L (7-52) 02/12/24 02:36 Alkaline Phosphatase 54 U/L (34-104) 02/12/24 02:36 Total Protein 7.1 gm/dl (6.0-8.3) 02/12/24 02:36 Albumin 3.9 gm/dl (3.4-5.0) 02/12/24 02:36 Globulin 3.2 gm/dl (2.5-4.0) 02/12/24 02:36 Albumin/Globulin Ratio 1.2 (0.9-2) 02/12/24 02:36 Lipase 26 U/L (11-82) 02/12/24 02:36 Urine Color Dark Yellow 02/12/24 02:52 Urine Appearance Clear (Clear) 02/12/24 02:52 Urine pH 6.0 (4.5-7.5) 02/12/24 02:52 Ur Specific [place] 1.027 (1.000-1.030) 02/12/24 02:52 Urine Protein Trace (Negative) H 02/12/24 02:52 Urine Glucose (UA) Negative (Negative) 02/12/24 02:52 Urine Ketones Trace (Negative) H 02/12/24 02:52 Urine Blood 2+ (Negative) H 02/12/24 02:52 Urine Nitrite Negative (Negative) 02/12/24 02:52 Urine Bilirubin Negative (Negative) 02/12/24 02:52 Urine Urobilinogen Negative (Negative) 02/12/24 02:52 Ur Leukocyte Esterase Trace (Negative) H 02/12/24 02:52 Urine WBC (Auto) 0-5 /hpf (0-5) 02/12/24 02:52 Urine RBC (Auto) >20 /hpf (0-2) H 02/12/24 02:52 U Hyaline Cast (Auto) 3-5 /lpf (0-2) H 02/12/24 02:52 U Epithel Cells (Auto) 0-2 /hpf (0-2) 02/12/24 02:52 Urine Bacteria (Auto) None Seen (None Seen) 02/12/24 02:52 Impressions Abdomen/Pelvis CT 02/12/24 02:27 EXAM: CT abd pelvis IV con only CLINICAL HISTORY: L-sided abd pain 94ml of 320 TECHNIQUE: A CT scan of the abdomen and pelvis was performed with the administration of IV contrast. Coronal and sagittal reconstructive images were also obtained. One of the following dose-reduction techniques was utilized for this exam. Automated exposure control, adjustment of the mA and/or kV according to patient size, and use of iterative reconstruction. COMPARISON: prior 02/05/2024 FINDINGS: Abdomen: The liver is mildly enlarged measuring 16.6 cm MCL. No focal or diffuse parenchymal abnormality. The portal vein, intrahepatic biliary radicals, and the bile ducts are normal. The spleen, pancreas(apart from a few calcific foci), and adrenal glands are unremarkable. The kidneys are unremarkable. They are normal in size and shape. They were still noted left mid-ureteric dense stone opposite L3-L4 vertebral level, measuring 4 mm, with upstream mild hydronephrosis. Bilateral multiple parapelvic cysts (BOSNAIK I). Bilateral mild perirenal fat stranding. The gallbladder is normal. No pericholecystic collection or radio-dense calculi in the gall bladder. The ascending colon, the transverse colon, the descending colon, visualized small bowel loops are unremarkable. The appendix is normal in size without mark appendiceal fat stranding and without an appendicolith. There is no evidence of significant enlargement of the mesenteric or retroperitoneal lymph nodes. Mild atherosclerotic plaques of the abdominal aorta. Pelvis: The urinary bladder is unremarkable. The rectosigmoid colon is unremarkable. Moderately enlarged prostate showing fine calcifications. No evidence of pelvic lymphadenopathy. Small left inguinal fat containing hernia. Spondylotic changes of the lumbar spine with dextro-scoliosis. No lytic or sclerotic bone lesions. A small left iliopsoas bursa was noted. Lower chest cuts revealed minimal bilateral pleural reactions, bibasal atelectatic bands with subpleural ground-glass attenuation and fine reticulations, likely retained secretions. IMPRESSION: 1. Still, noted left mid-ureteric dense stone opposite L3-L4 vertebral level, measuring 4 mm, with upstream mild hydronephrosis. 2. Bilateral multiple parapelvic cysts (BOSNAIK I). 3. Bilateral mild perirenal fat stranding. 4. Mild hepatomegaly. 5. Moderately enlarged prostate. 6. Small left inguinal fat containing hernia. 7. Minimal bilateral pleural reactions. 8. Interval new bilateral pleural reactions, with a stable course of the rest of the findings. Electronically signed by Polo Galvez 02-12-2024 04:41 AM Code Status & VTE Plan Code Status Full code VTE Prophylaxis Plan VTE Prophylaxis will be ordered: Yes PG Care Time/CCT Total # of Minutes Spent Total Time Spent with Patient: Total time spent is greater than 50% in coordination of care (as documented) at patient's floor/unit and/or counseling patient: Coding Level of Care Code 75591 INT INP/OBS CARE MIN Diagnoses Hydronephrosis of left kidney N13.30 Calculus of left ureter N20.1 Acute left flank pain R10.9 Intractable pain R52
[2024-02-12] MEDS ORDERED: ONDANSETRON INJ 2 MG/ML 2 ML VIAL IV PRN (06:00)
[2024-02-12] MEDS ORDERED: MoRPHine SULFATE 4 MG/ML 1 ML CARP\\VIAL IV PRN (06:00)
[2024-02-12] MEDS ORDERED: MoRPHine SULFATE 2 MG/ML CARP IV PRN (06:00)
[2024-02-12] MEDS ORDERED: ACETAMINOPHEN 1,000 MG/100 ML VIAL IV PRN (06:00)
[2024-02-12] MEDS: cefTRIAXone SODIUM 2,000 MG/50 ML BAG IV SCH (06:29)
[2024-02-12] MEDS: LACTATED RINGER'S 1,000 ML IV SCH (07:05)
[2024-02-12 07:33] VITALS: BP 142/71; PULSE 52; RESP 16; TEMP 98.8; O2SAT 95
--- NOTE | 2024-02-12 07:51 | Hospitalist Progress Note ---
Date of Service February 12, 2024 Assessment & Plan Plan (1) Hydronephrosis of left kidney: (2) Calculus of left ureter: (3) Acute left flank pain: (4) Intractable pain: Plan 4 mm left mid ureter stone/mild left hydronephrosis- UA: 2+ blood, trace LE, >20 RBCs, 3-5 hyaline casts, no bacteria or nitrites urine culture, no growth preliminary (< 1000 colonies/mL) Consider stopping Ceftriaxone 2 g IV every 24 hours Acetaminophen 1 g IV, q8 hrs, PRN, mild pain or fever Morphine sulfate 2 mg, IV, q3hrs, PRN, moderate pain; Morphine sulfate 4 mg, IV, q3hrs, PRN, severe pain Zofran 4 mg IV every 6 hours as needed for nausea, vomiting Tamsulosin, 0.4 mg, PO, daily started (02/11) Consider Azo for pain instead of morphine sulfate Status post NSS 500 mL bolus from the ED LR at 80 mL/h x 1 L Consult urology Admission and Anticipated Discharge Date Admission Date: February 12, 2024 Results & Data Results & Data Vital Signs (Past 12 Hours) Vital Signs Temp Pulse Pulse Pulse Resp BP BP 02/12/24 07:32 37.1 C 52 L 16 02/12/24 06:06 36.4 C L 68 18 153/68 H 02/12/24 05:33 56 L 20 139/69 02/12/24 04:02 55 L 24 164/79 H 02/12/24 03:42 64 18 166/69 H 02/12/24 02:50 02/12/24 02:49 02/12/24 02:42 54 L 02/12/24 02:19 36.9 C 55 L 18 162/81 H 02/12/24 02:16 36.6 C 59 L 17 145/67 H BP Pulse Ox O2 Del Method O2 Flow Rate 02/12/24 07:32 142/71 H 95 Room Air 02/12/24 06:06 94 Room Air 02/12/24 05:33 98 Nasal Cannula 2 02/12/24 04:02 100 Room Air 02/12/24 03:42 98 Room Air 02/12/24 02:50 99 Nasal Cannula 2 02/12/24 02:49 88 L Room Air 02/12/24 02:42 02/12/24 02:19 100 Room Air 02/12/24 02:16 98 Nasal Cannula 2 Resident Activity Tracking Resident Involvement: Resident Care Provided Care Provided: Adult Hospital Medicine
--- NOTE | 2024-02-12 09:05 | Urology Consultation ---
Date of Consultation February 12, 2024 Assessment & Plan (1) Hydronephrosis of left kidney: (2) Calculus of left ureter: Plan Left ureteral calculus Failed outpatient trial of passage He is currently comfortable without severe pain, nontoxic Discussed different options with him We will plan for discharge home and treatment as an outpatient tomorrow Must be n.p.o. at midnight History of Present Illness Attending Physician: Kit Connor DO History of Present Illness 73-year-old gentleman in good health who presents to the emergency room with severe left flank pain He has a known left ureteral calculus which has already necessitated a prior ER visit He had a CT scan last week and another yesterday The stone has not moved a great deal and he has some hydronephrosis He has no leukocytosis He is afebrile and hemodynamically stable Creatinine is appropriate Resting comfortably on evaluation today Mild ache at most Allergies Allergy/AdvReac Type Severity Reaction Status Date / Time chlorhexidine Allergy Severe RASH Verified 02/10/24 09:57 pregabalin [From Lyrica] Allergy Unknown Hives Verified 02/10/24 09:57 Home Medications Medication Instructions Recorded Confirmed Type acetaminophen 500 mg tablet 1,000 mg PO Q6H PRN Pain ##0 09/23/16 02/10/24 History (Tylenol Extra Strength) sertraline 100 mg tablet (Zoloft) 100 mg PO PM 09/01/20 02/10/24 History multivitamin with minerals-folic 1 tab PO QPM 03/21/22 02/10/24 History acid 0.4 mg tablet (Adult One Daily Multivitamin) allopurinol 300 mg tablet 300 mg PO DAILY 09/26/22 02/10/24 History aspirin 81 mg tablet,delayed 81 mg PO DAILY 09/26/22 02/10/24 History release rosuvastatin 40 mg tablet 40 mg PO DAILY 09/26/22 02/10/24 History oxycodone-acetaminophen 5 mg-325 1 tab PO Q6H PRN pain #14 tabs 02/05/24 Rx mg tablet (Percocet) Patient History Medical History Tremor mild Neuropathy BPH (benign prostatic hyperplasia) Anxiety Hyperlipidemia Nasal congestion related to allergies History of colon polyps History of gout Osteoarthritis HX OF NECK FRACTURE IN PAST, PT ALSO FOLLOWS WITH DR. CONLEY FOR LUMBAR PAIN WITH LEG PAIN Sleep apnea USES CPAP Cardiac murmur dx as child Myocardial Infarction approx 14 yrs ago> stress related, hospital obs> no further work up > follows with Dr. Buckner Surgical History History of esophagogastroduodenoscopy (EGD) History of colonoscopy History of tooth extraction S/P epidural steroid injection lumbar/cervical History of surgery on upper extremity right for nerve issues History of hammertoe correction BL Fusion of toes of right foot History of herniorrhaphy History of appendectomy Family History Sister Family history of diabetes mellitus Other Family history of prostate cancer No family history of adverse response to anesthesia Social History Smoking Status: Never smoker Second Hand Exposure: No; Do You Dip or Chew Tobacco: No; Hx Alcohol Use: No Hx Substance Use: No Preferred Language: Mongolian Communication Ability: Effective Intervention Specialist Required: No Beliefs That Will Affect Care: None Current Living Situation: Spouse Feels Safe at Home: Yes Assistive Devices: None Review of Systems Constitutional: no fever, no chills and no fatigue Eyes: no worsening vision Ear, Nose, Mouth, Throat: no facial pain and no pain with swallowing Respiratory: no cough and no dyspnea Cardiovascular: no chest pain and no palpitations Gastrointestinal: no abdominal pain, no nausea and no vomiting Musculoskeletal: no back pain Integumentary: no rash and no urticaria Neurologic: no gait abnormality and no unsteadiness Psychiatric: no behavioral changes and no depression Endocrine: no fatigue Physical Exam Constitutional: well developed and well nourished Neck: neck nontender Respiratory: normal respiratory effort; no respiratory distress and does not use accessory muscles Cardiovascular: Rate/Rhythm: regular rate Vessels: radial pulses present Extremities: no edema Gastrointestinal (Abdomen): Inspection/Auscultation: abdomen normal to inspection Percussion/Palpation: abdomen soft; abdomen nontender and no guarding Musculoskeletal: Head/Neck/Chest: normocephalic and head atraumatic Ext remities: extremities normal to inspection Skin: no rashes and no lesions Trauma: no evidence of skin trauma Neurologic: awake; not obtunded Speech / Cognition: normal speech Motor/Sensory: no tremor Psychiatric: Orientation: alert and oriented x 3 Genitourinary: no CVA tenderness Lymphatic: no lymphadenopathy Results & Data Vital Signs (Past 12 Hours) Vital Signs Temp Pulse Pulse Pulse Resp BP BP 02/12/24 07:32 37.1 C 52 L 16 02/12/24 06:06 36.4 C L 68 18 153/68 H 02/12/24 05:33 56 L 20 139/69 02/12/24 04:02 55 L 24 164/79 H 02/12/24 03:42 64 18 166/69 H 02/12/24 02:50 02/12/24 02:49 02/12/24 02:42 54 L 02/12/24 02:19 36.9 C 55 L 18 162/81 H 02/12/24 02:16 36.6 C 59 L 17 145/67 H BP Pulse Ox O2 Del Method O2 Flow Rate 02/12/24 07:32 142/71 H 95 Room Air 02/12/24 06:06 94 Room Air 02/12/24 05:33 98 Nasal Cannula 2 02/12/24 04:02 100 Room Air 02/12/24 03:42 98 Room Air 02/12/24 02:50 99 Nasal Cannula 2 02/12/24 02:49 88 L Room Air 02/12/24 02:42 02/12/24 02:19 100 Room Air 02/12/24 02:16 98 Nasal Cannula 2 PG Care Time/CCT Total # of Minutes Spent Total Time Spent with Patient: Total time spent is greater than 50% in coordination of care (as documented) at patient's floor/unit and/or counseling patient: Coding Level of Care Code 05316 IN/OBS CONSULT LVL 3,45M Diagnoses Hydronephrosis of left kidney N13.30 Calculus of left ureter N20.1
[2024-02-12] MEDS: TAMSULOSIN HCL 0.4 MG CAP PO SCH (09:33)
--- NOTE | 2024-02-12 11:22 | Discharge Summary ---
Date of Service February 12, 2024 Admission HPI Per Admitting Provider The patient is a 73-year-old male with a past medical history including history of 4 previous kidney stones, tremor, neuropathy, gait abnormality, glucose intolerance, sleep apnea, gout and hyperlipidemia. He presents to the emergency department with symptoms as noted above. CT scan of abdomen pelvis shows a mid left ureter stone not significantly changed in position, with mild left hydronephrosis. He did get improvement with Toradol and then morphine in the ED, and was then referred for evaluation for admission Admission Exam Per Admitting Provider The patient is awake, alert and oriented 3, well developed and well nourished, normocephalic and atraumatic, lying in bed and in no acute distress. HEENT--PERRL, EOMI, mucous membranes and oropharynx normal Neck--supple. No JVD. No bruits. Thyroid normal, trachea midline, no adenopathy. Heart--normal S1 and S2. No murmurs, rubs or gallops. Lungs--clear bilaterally, no respiratory distress, no accessory muscle use. Abdomen--normal bowel sounds and soft. Nontender. Nondistended, no hernias or masses, no organomegaly. Extremities--no cyanosis or clubbing. No edema. There are good distal pulses b/l. Dermatologic--normal skin turgor, normal color, no abnormal lymph nodes, no rash. Neurologic--cranial nerves II through XII grossly intact. Rheumatologic--normal range of motion. Psychiatric--normal affect. Principal Diagnosis left kidney stone Discharge Exam Constitutional WD/WN, vitals as above Respiratory normal respiratory effort, lungs clear to auscultation Cardiovascular RRR, no murmur, no edema Extremities: normal capillary refill; no calf tenderness and no pedal edema Gastrointestinal (Abdomen) Inspection/Auscultation: abdomen normal to inspection and normal bowel sounds; abdomen not distended Percussion/Palpation: + abdomen tender (tenderness from l. flank area into l. groin) Psychiatric A+Ox3, euthymic affect Genitourinary + CVA tenderness (left sided) and bladder normal to inspection Discharge Data Allergies Allergy/AdvReac Type Severity Reaction Status Date / Time chlorhexidine Allergy Severe RASH Verified 02/10/24 09:57 pregabalin [From Lyrica] Allergy Unknown Hives Verified 02/10/24 09:57 Consultations 02/12/24 04:48 ED Decision to Admit Stat 02/12/24 06:00 Consult Urology Routine Ordered Studies 02/12/24 02:27 CT Abd and Pelvis [CT abd pelvis IV con only] Stat Hospital Course (1) Acute left flank pain: (2) Hydronephrosis of left kidney: (3) Calculus of left ureter: Plan (1) Hydronephrosis of left kidney/ Calculus of left ureter/ Acute left flank pain Plan 4 mm left mid ureter stone/mild left hydronephrosis- UA: 2+ blood, trace LE, no nitrites or bacteria Ceftriaxone 2 g IV every 24 hours Acetaminophen 1 g IV every 8 hours as needed for mild pain or fever Morphine sulfate 2 mg IV, q3 hrs, PRN, moderate pain; Morphine sulfate 4 mg IV, q3hrs, PRN, severe pain Zofran 4 mg IV every 6 hours as needed Status post NSS 500 mL bolus from the ED; LR at 80 mL/h x 1 L Consulted urology: scheduled pt for an outpt ureter stent placement procedure tomorrow morning, recommended discharge today Follow urine culture and sensitivity after patient returns for procedure tomorrow Total Time Total Time Spent Total Time Spent (In Minutes): I spent 25 mins today with regards to this patient. Discharge Plan Discharge Items Patient Disposition: Home - Self-Care Reason For Visit: LEFT MID URETERAL STONE,MID LEFT HYDRO Discharge Diagnosis: left ureteral stone Activity: Resume your previous activity Bathing: No limitations Exercise/Sports: As tolerated Driving/Machine Use: No limitations Non-emergency contact: Urologist Call non-emergency contact if: you have any medication questions, your pain is concerning for you, you have a fever and your temperature is above 101.5 Follow-up/Referrals: Alisha Sotelo MD [Primary Care Provider] - Dietitian Info: Please do not eat anything after MIDNIGHT tonight Diet: Regular Addtl Attending Provider Instructions: You are scheduled for an outpatient stone surgery tomorrow. Please arrive at the hospital main entrance at 6AM - your case is scheduled to start at 7:30AM. You will need a compactor driver to take you home after surgery. Pending Studies at Discharge: No Stand-Alone Forms: My RooT, Smoking Cessation Medications and DC Order Prescriptions: Continued acetaminophen [Tylenol Extra Strength] 500 mg Tablet 1,000 mg PO Q6H PRN (Reason: Pain) Qty: 0 sertraline [Zoloft] 100 mg Tablet 100 mg PO PM multivit with min-folic acid [Adult One Daily Multivitamin] 0.4 mg Tablet 1 tab PO QPM allopurinol 300 mg tablet 300 mg PO DAILY aspirin 81 mg Tablet,Delayed Release (Dr/Ec) 81 mg PO DAILY rosuvastatin 40 mg tablet 40 mg PO DAILY oxycodone-acetaminophen [Percocet] 5-325 mg tablet 1 tab PO Q6H PRN (Reason: pain) Qty: 14 0RF Discharge Orders: Discharge Order (Routine); Ordered 02/12/24 Ordered By: Esvin Keith Admission Data Admit Date/Time: 02/12/24 05:14 Attending Provider: Kit Connor Admit Provider: Aaron Dunlap Primary Care Provider: Alisha Sotelo Other Providers: Aaron Dunlap; Rodrigo Burns. Other Interventions: Discharge Summary Assessment (RN) Last Done: 02/12/24 11:18 Supervising Physician Co-Signing Physician Notes ATTESTATION I also saw the patient and confirmed davis portions of the history and exam. I agree with the impression and plan in the resident documentation, and as summarized below. I also discussed the case with the urology eligibility consultant. Patient remains afebrile. Pain well controlled. He received a dose of Rocephin and has planned intervention tomorrow AM at which time he will get a pre-operative dose.
== END 2024-02-12 11:40 | disposition home or self-care (01) ==
LOC: ED 02:15 → 3W 02:15 → SUATTDRO 05:14 → 3W 05:33